=== PATIENT | female | born 1990 | race Caucasian/White ===

== ENCOUNTER → 2016-10-25 | Outpatient (CLI) | payer MEDICAID ==
[2016-10-25 20:55] LABS: Basophils # (A) 0.1 k/uL (0-0.2); Basophils % (A) 0 %; CH 31.7; CHCM 33.8; Eosinophils # (A) 0.1 k/uL (0-0.7); Eosinophils % (A) 1 %; HCT 41.3 % (34.0-46.0); HDW 2.14; HGB 13.6 gm/dL (11.4-16.0); Luc # (Auto) 0.12; Luc % (Auto) 1; Lymphocytes # (A) 1.9 k/uL (1.0-4.8); Lymphocytes % (A) 16 %; MCH 30.9 pg (25.0-35.0); MCHC 32.9 g/dL (31.0-37.0); MCV 94.1 fL (80.0-100.0); Mean Platelet Volume 8.4; Monocytes # (A) 0.4 k/uL (0-1.0); Monocytes % (A) 3 %; Neutrophils # (A) 9.5 k/uL (1.3-7.7); Neutrophils % (A) 79 %; RBC 4.39 m/uL (3.80-5.40); WBC 12.1 k/uL (3.8-10.6); WBC (Perox) 12.62
[2016-10-25 21:08] LABS: ALT 32 U/L (9-52); AST 24 U/L (14-36); Alkaline Phosphatase 58 U/L (38-126); Anion Gap 13 mmol/L; Blood Urea Nitrogen 11 mg/dL (7-17); Calcium 9.4 mg/dL (8.4-10.2); Carbon Dioxide 22 mmol/L (22-30); Chloride 109 mmol/L (98-107); Cholesterol 124 mg/dL (<200); Glucose 93 mg/dL (74-99); HDL Cholesterol 74 mg/dL (40-60); Non-African American GFR(MDRD) >60 (>60 ml/min/1.73 sqM); Potassium 4.1 mmol/L (3.5-5.1); Sodium 144 mmol/L (137-145); Total Bilirubin 1.9 mg/dL (0.2-1.3); Total Protein 7.1 g/dL (6.3-8.2); Triglycerides 37 mg/dL (<150)
== END | disposition home or self-care (01) ==
LOC: MMGSC 09:16
PROVIDERS: ATTEND Family Medicine
DX: Z00.00 Encounter for general adult medical examination without abnormal findings (principal)
CPT/HCPCS: 36415; 80053; 80061; 84439; 84443; 85025

== ENCOUNTER → 2016-10-28 | Outpatient (CLI) | payer MEDICAID ==
[2016-10-28 18:21] LABS: Basophils # (A) 0.1 k/uL (0-0.2); Basophils % (A) 1 %; CH 31.7; CHCM 33.5; Eosinophils # (A) 0.1 k/uL (0-0.7); Eosinophils % (A) 2 %; HCT 37.6 % (34.0-46.0); HDW 2.16; HGB 12.5 gm/dL (11.4-16.0); Luc % (Auto) 1; Lymphocytes # (A) 2.2 k/uL (1.0-4.8); Lymphocytes % (A) 27 %; MCH 31.7 pg (25.0-35.0); MCHC 33.3 g/dL (31.0-37.0); MCV 95.1 fL (80.0-100.0); Mean Platelet Volume 7.3; Monocytes # (A) 0.4 k/uL (0-1.0); Monocytes % (A) 5 %; Neutrophils # (A) 5.3 k/uL (1.3-7.7); Neutrophils % (A) 64 %; RBC 3.96 m/uL (3.80-5.40); RDW 11.9 % (11.5-15.5); WBC 8.3 k/uL (3.8-10.6); WBC (Perox) 8.89
== END | disposition home or self-care (01) ==
LOC: MMGSC 17:00
PROVIDERS: ATTEND Family Medicine
DX: R79.9 Abnormal finding of blood chemistry, unspecified (principal)
CPT/HCPCS: 36415; 85025

== ENCOUNTER → 2018-02-11 | Outpatient (CLI) | payer MEDICAID ==
[2018-02-11 08:22] LABS: Basophils # (A) 0.1 k/uL (0-0.2); Basophils % (A) 1 %; Eosinophils # (A) 0.2 k/uL (0-0.7); Eosinophils % (A) 2 %; HCT 42.7 % (34.0-46.0); HGB 14.4 gm/dL (11.4-16.0); Lymphocytes # (A) 2.1 k/uL (1.0-4.8); Lymphocytes % (A) 21 %; MCH 31.1 pg (25.0-35.0); MCHC 33.8 g/dL (31.0-37.0); MCV 91.9 fL (80.0-100.0); Mean Platelet Volume 6.5; Monocytes # (A) 0.4 k/uL (0-1.0); Monocytes % (A) 4 %; Neutrophils # (A) 7.2 k/uL (1.3-7.7); Neutrophils % (A) 73 %; Platelet Count 281 k/uL (150-450); RBC 4.65 m/uL (3.80-5.40); RDW 12.4 % (11.5-15.5); WBC 9.9 k/uL (3.8-10.6)
[2018-02-11 09:02] LABS: ALT 33 U/L (9-52); AST 24 U/L (14-36); Albumin 4.5 g/dL (3.5-5.0); Alkaline Phosphatase 56 U/L (38-126); Anion Gap 13 mmol/L; Blood Urea Nitrogen 16 mg/dL (7-17); Calcium 9.3 mg/dL (8.4-10.2); Carbon Dioxide 24 mmol/L (22-30); Chloride 105 mmol/L (98-107); Cholesterol 144 mg/dL (<200); Glucose 90 mg/dL (74-99); HDL Cholesterol 76 mg/dL (40-60); LDL Cholesterol,Calculated 59 mg/dL (0-99); Potassium 4.6 mmol/L (3.5-5.1); Sodium 142 mmol/L (137-145); Total Protein 6.6 g/dL (6.3-8.2); Triglycerides 46 mg/dL (<150)
== END | disposition home or self-care (01) ==
LOC: LABWHC1 07:57
PROVIDERS: ATTEND Registered Nurse
DX: R53.83 Other fatigue (principal); Z13.220 Encounter for screening for lipoid disorders; Z79.899 Other long term (current) drug therapy
CPT/HCPCS: 36415; 80053; 80061; 82306; 84443; 85025

== ENCOUNTER → 2018-04-29 | Outpatient (CLI) | payer MEDICAID ==
--- NOTE | 2018-04-29 08:37 | US ---
EXAMINATION TYPE: US abdomen complete DATE OF EXAM: 04/29/2018 COMPARISON: NONE CLINICAL HISTORY: R10.9 Abdominal Pain. Patient had pain to the left of the umbilicus EXAM MEASUREMENTS: Liver Length: 14.0 cm Gallbladder Wall: 0.2 cm CBD: 0.4 cm Spleen: 10.4 cm Right Kidney: 10.8 x 4.2 x 5.8 cm Left Kidney: 10.4 x 5.3 x 5.0 cm Pancreas: Obscured by bowel gas, visualized portions wnl Liver: wnl Gallbladder: wnl Evidence for sonographic Cook's sign: No CBD: wnl Spleen: Probable accessory spleen visualized measuring 1.2 x 1.6 x 2.0 cm Right Kidney: No hydronephrosis or masses seen, slightly limited due to bowel gas Left Kidney: No hydronephrosis or masses seen, slightly limited due to bowel gas Upper IVC: wnl Abd Aorta: wnl Scanning performed at the site of patient's pain left at the umbilicus shows no definite abnormality. The liver is homogenous. The intrahepatic portion of the IVC and proximal abdominal aorta are within normal limits. There is no evidence of cholelithiasis. Common bile duct is unremarkable. The visu alized portions of the pancreas are homogenous. The spleen is unremarkable. Kidneys are symmetric a nd free of hydronephrosis. No renal lesions are seen. Hypoechoic focus adjacent to the kidney and sp mo represent splenule. IMPRESSION: Exam is somewhat limited. No abnormality evident to account for patient's symptoms. CT sc an may be of benefit.
== END | disposition home or self-care (01) ==
LOC: RADUSWWP 07:22
PROVIDERS: ATTEND Family Medicine
DX: R10.9 Unspecified abdominal pain (principal)
CPT/HCPCS: 76700

== ENCOUNTER → 2019-08-18 | Outpatient (CLI) | payer MEDICAID ==
--- NOTE | 2019-08-18 16:18 | US ---
EXAMINATION TYPE: US transvaginal DATE OF EXAM: 08/18/2019 COMPARISON: NONE CLINICAL HISTORY: R10.2 PELVIC PAIN. Acute pelvic pain TECHNIQUE: . Transvaginal sonographic images of the pelvis were acquired. Date of LMP: 08/11/2019 EXAM MEASUREMENTS: Uterus: 7.3 x 3.6 x 4.1 cm Endometrial Stripe: 0.8 cm Right Ovary: 4.8 x 3.2 x 3.1 cm Left Ovary: 6.1 x 4.4 x 3.7 cm 1. Uterus: Anteverted wnl 2. Endometrium: wnl 3. Right Ovary: Multiple cystic areas, largest 3.7 x 2.6 x 2.4 cm 4. Left Ovary: Multiple cystic areas visualized, largest measuring 2.7 x 1.8 x 3.1 cm Spectral, color and waveform doppler imaging shows good arterial and venous flow within the ovaries ; there is no evidence for ovarian torsion. 5. Bilateral Adnexa: wnl 6. Posterior cul-de-sac: Tiny amount of free fluid visualized IMPRESSION: Probable functional ovarian follicular cyst. This can be confirmed with follow-up study in [address] weeks[address] amount of free fluid.
== END | disposition home or self-care (01) ==
LOC: RADUSWWP 15:28
PROVIDERS: ATTEND Obstetrics & Gynecology
DX: R10.2 Pelvic and perineal pain (principal)
CPT/HCPCS: 76830; 93975

== ENCOUNTER → 2019-08-27 | Outpatient (CLI) | payer MEDICAID ==
[2019-08-27 16:43] LABS: Basophils # (A) 0.1 k/uL (0-0.2); Basophils % (A) 1 %; Eosinophils # (A) 0.1 k/uL (0-0.7); Eosinophils % (A) 1 %; HCT 43.1 % (34.0-46.0); Lymphocytes # (A) 3.5 k/uL (1.0-4.8); Lymphocytes % (A) 25 %; MCH 31.6 pg (25.0-35.0); MCHC 34.9 g/dL (31.0-37.0); MCV 90.6 fL (80.0-100.0); Mean Platelet Volume 7.5; Monocytes # (A) 0.6 k/uL (0-1.0); Monocytes % (A) 4 %; Neutrophils # (A) 9.8 k/uL (1.3-7.7); Neutrophils % (A) 69 %; Platelet Count 343 k/uL (150-450); RBC 4.75 m/uL (3.80-5.40); RDW 11.8 % (11.5-15.5); WBC 14.1 k/uL (3.8-10.6)
[2019-08-27 17:46] LABS: Erythrocyte Sedimentation Rate 6 mm/hr (0-20)
[2019-08-27 23:28] LABS: C Reactive Protein <0.4 mg/dL (0.0-0.8)
[2019-08-27 23:29] LABS: ALT 21 U/L (8-44); AST 26 U/L (13-35); African American GFR (CKD) 100.1 (60.0-200.0); Albumin/Globulin Ratio 2.94 (1.60-3.17); Alkaline Phosphatase 65 U/L (41-126); BUN/Creat Ratio 16.67 Ratio (12.00-20.00); Calcium 9.7 mg/dL (8.7-10.3); Carbon Dioxide 23.7 mmol/L (21.6-31.8); Chloride 104 mmol/L (96-109); Globulin 1.7 g/dL (1.6-3.3); Glucose 86 mg/dL (70-110); Non-African American GFR(CKD) 86.4 (60.0-200.0); Sodium 138 mmol/L (135-145); Total Bilirubin 1.3 mg/dL (0.3-1.2); Total Protein 6.7 g/dL (6.2-8.2)
[2019-08-28 00:26] LABS: Gliadin AB IgA, Deaminated NEGATIVE (NEGATIVE); Gliadin AB IgA, Unit <0.2 U/mL; Gliadin AB IgG, Deaminated NEGATIVE (NEGATIVE)
== END | disposition home or self-care (01) ==
LOC: LABWHC1 15:33
PROVIDERS: ATTEND Family Medicine
DX: R10.30 Lower abdominal pain, unspecified (principal); N80.9 Endometriosis, unspecified
CPT/HCPCS: 36415; 80053; 83516; 84443; 85025; 85652; 86140

== ENCOUNTER → 2019-09-24 | Outpatient (CLI) | payer MEDICAID ==
[2019-09-24 20:28] LABS: Follicle Stimulating Hormone 5.1 mIU/mL
[2019-09-24 20:37] LABS: DHEA Sulfate 317.4 ug/dL (26.0-430.0); Progesterone 0.7 ng/mL
== END | disposition home or self-care (01) ==
LOC: LABWHC1 12:41
PROVIDERS: ATTEND Obstetrics & Gynecology
DX: N97.0 Female infertility associated with anovulation (principal); R10.2 Pelvic and perineal pain; N93.9 Abnormal uterine and vaginal bleeding, unspecified; N97.9 Female infertility, unspecified
CPT/HCPCS: 36415; 82627; 83001; 83002; 84144; 84403

== ENCOUNTER → 2019-11-03 | Outpatient (CLI) | payer MEDICAID | END | disposition home or self-care (01) | LOC: LABWHC1 15:46 | PROVIDERS: ATTEND Obstetrics & Gynecology | DX: N97.0 Female infertility associated with anovulation (principal) | CPT/HCPCS: 36415; 84144 ==

== ENCOUNTER → 2020-04-12 | Outpatient (CLI) | payer MEDICAID ==
--- NOTE | 2020-04-12 15:15 | FL ---
EXAMINATION TYPE: FL hysterosalpingography DATE OF EXAM: 04/12/2020 COMPARISON: None HISTORY: Infertility TECHNIQUE: The procedure was explained to the patient, the risks complications benefits. All question s were answered. Written and verbal informed consent was obtained. A timeout was performed. The patient was positioned on the fluoroscopy table. Speculum was inserted and the cervix localized. Vaginal vault was cleansed with Betadine. The catheter was placed and the balloon inflated without di fficulty. Under fluoroscopic observation contrast was placed through the uterus and into the fallopian tubes. The balloon was deflated and additional overhead radiographs were obtained. Discharge instructions were discussed with the patient. The patient was released in stable condition having tolerated procedure very well. FINDINGS: Uterus appears unremarkable. There was free flow with little resistance through the fallopi an tubes to the ends. Additional contrast collected at the ends of the fallopian tubes. Free spill co uld not be elicited within the pelvis. Prone and upright views over the pelvis likewise have persistent collection at the adnexal regions wi thout free spill into the pelvis. Fallopian tubes to the ends appear to be patent. IMPRESSION: 1. Contrast collection at the adnexal regions following free flow through the fallopian tubes. There may be some loculation surrounding the fimbriated ends of the fallopian tubes at the adnexa.
== END | disposition home or self-care (01) ==
LOC: RADUSWWP 13:31
PROVIDERS: ATTEND Obstetrics & Gynecology
DX: N97.9 Female infertility, unspecified (principal)
CPT/HCPCS: 58340; 74740; Q9967

== ENCOUNTER → 2020-09-06 | Outpatient (CLI) | payer MEDICAID ==
[2020-09-07 07:34] LABS: Hepatitis B Surface Antigen Non-Reactive (Non-Reactive); Hepatitis C IgG Antibody Non-Reactive (Non-Reactive)
[2020-09-07 10:00] LABS: Prolactin 8.2 ng/mL (2.8-29.2)
[2020-09-07 11:10] LABS: HIV 2 AB Non-Reactive (Non-Reactive); HIV AB P24 Non-Reactive (Non-Reactive); HIV P24 AG Non-Reactive (Non-Reactive)
== END | disposition home or self-care (01) ==
LOC: LABWHC1 15:36
PROVIDERS: ATTEND Obstetrics & Gynecology Reproductive Endocrinology
DX: Z01.812 Encounter for preprocedural laboratory examination (principal)
CPT/HCPCS: 36415; 82306; 82397; 83036; 84146; 84443; 86704; 86762; 86780; 86787; 86803; 86850; 86900; 86901; 87340; 87390

== ENCOUNTER → 2021-07-30 | Outpatient (CLI) | payer MEDICAID ==
[2021-07-30 22:31] LABS: HCT 38.7 % (37.2-46.3); HGB 13.2 g/dL (12.0-15.0); MCH 31.3 pg (27.0-32.0); MCHC 34.1 g/dL (32.0-37.0); MCV 91.7 fL (80.0-97.0); Mean Platelet Volume 9.5 fL (9.5-12.2); Platelet Count 287 X 10*3/uL (140-440); RBC 4.22 X 10*6/uL (4.10-5.20); RDW 12.1 % (11.5-14.5); WBC 15.76 X 10*3/uL (4.50-10.00)
[2021-07-31 00:21] LABS: African American GFR (CKD) 133.8 (60.0-200.0); Non-African American GFR(CKD) 115.4 (60.0-200.0)
[2021-07-31 00:41] LABS: Hepatitis B Surface Antigen Nonreactive (Nonreactive)
[2021-07-31 05:48] LABS: Toxoplasma Antibody (IgG) <3.0 IU/mL (<7.2); Toxoplasma Antibody (IgM) <3.0 AU/mL (<8.0)
== END | disposition home or self-care (01) ==
LOC: LABWHC1 16:45
PROVIDERS: ATTEND Obstetrics & Gynecology
DX: Z34.81 Encounter for supervision of other normal pregnancy, first trimester (principal)
CPT/HCPCS: 36415; 82565; 82947; 85027; 86765; 86777; 86778; 86780; 87340; 87536

== ENCOUNTER → 2021-08-07 | Outpatient (CLI) | payer MEDICAID ==
[2021-08-08 14:56] LABS: Alpha Fetoprotein 38.8 ng/mL; Alpha Fetoprotein (M.O.M) 1.14; Gestational Age (days) 2; Human Chorionic Gonadotropin 31.8 IU/mL; Inhibin A (M.O.M.) 0.99; Interpretation SeeBelow; Maternal Age at EDD (Yrs) 31; Smoker No; Unconjugated Estriol (M.O.M.) 0.89
== END | disposition home or self-care (01) ==
LOC: LABWHC1 15:29
PROVIDERS: ATTEND Obstetrics & Gynecology
DX: Z34.02 Encounter for supervision of normal first pregnancy, second trimester (principal)
CPT/HCPCS: 36415; 82105; 82677; 84702; 86336

== ENCOUNTER → 2021-08-13 | Outpatient (CLI) | payer MEDICAID ==
--- NOTE | 2021-08-13 15:52 | US ---
EXAMINATION TYPE: US OB anatomy transabd DATE OF EXAM: 08/13/2021 COMPARISON: NONE HISTORY: O36.62X0 Large for dates anatomy exam TECHNIQUE: OBTA EXAM MEASUREMENTS: GESTATIONAL AGE / DATING Physician Established: (18 weeks/1 days) EDC: 01/13/2022 Dates by LMP: Unknown Dates by First Scan: PLATEN BUILDER UP here Dates by Current Scan for: (18 weeks/3 days) EDC: 01/11/2022 SURVEY IUP: Single PLACENTA: Posterior PREVIA: No previa KEVIN: 11.9 cm Normal CERVICAL LENGTH (transabdominal: norm > 3.0cm): 3.7 cm BIOMETRY PRESENTATION: Breech LIE: Longitudinal BPD: 4.0 cm 18 weeks / 1 days HC: 15.2 cm 18 weeks / 2 days AC: 13.5 cm 19 weeks / 0 days FL: 2.8 cm 18 weeks / 4 days ESTIMATED WEIGHT IN GRAMS: 252 grams ESTIMATED WEIGHT IN LBS/OZ: 0 lbs. 9 oz. WEIGHT PERCENTAGE BASED ON ESTABLISHED DATE: 78 % HC/AC: 1.1 Normal FL/AC: 20.7 Normal HEART RATE: 134 bpm RHYTHM: Normal ANATOMY SEEN (within normal limits): * Lateral Vent (< 1 cm) 0.8 cm * Cisterna Magna (< 1.1 cm) 0.4 cm * Nuchal Fold (< 0.6 cm) 0.3 cm * Cerebellum (varies with age) 1.8 cm Choroid Plexus (bilateral) Midline Falx Cavus Septi Pellucidi Four Chamber Heart - best imaging of outflow tracts toward end of exam Outflow tracts: LVOT/RVOT Stomach Situs Diaphragm Kidneys (bilateral) Bladder Cord Insert Three Vessel Cord Longitudinal Spine Transverse Spine Arms (bilateral) ANATOMY NOT SEEN: Legs (bilateral) - due to positioning, breech Nose / Lips MATERNAL WALL MEASUREMENT: 3.9 cm from skin to anterior uterine wall (if exam limited due to body scott bitus). Patient is coming back for imaging of lower limbs, challenging exam due to positioning and habi tus IMPRESSION: Single viable intrauterine . See above for patient callback and exam limitation.
== END | disposition home or self-care (01) ==
LOC: RADUSWWP 14:42
PROVIDERS: ATTEND Obstetrics & Gynecology
DX: O36.62X0 Maternal care for excessive fetal growth, second trimester, not applicable or unspecified (principal); Z3A.18 18 weeks gestation of pregnancy
CPT/HCPCS: 76811

== ENCOUNTER → 2021-09-03 | Outpatient (CLI) | payer MEDICAID ==
--- NOTE | 2021-09-03 16:02 | US ---
EXAMINATION TYPE: US OB Call Back DATE OF EXAM: 09/03/2021 COMPARISON: NONE CLINICAL HISTORY: OB CALL BACK; O36.62X0 Large for dates. Callback exam for bilateral legs and nose/l ips GESTATIONAL AGE / DATING Dates by Initial Survey Scan: (21 weeks/1 days) EDC: 01/13/2022 HEART RATE: 144 bpm RHYTHM: Normal Nose / Lips: Visualized Legs (bilateral): Visualized Bilateral legs seen, limited nose/lips, normal heart rate seen IMPRESSION: 1. Limited OB ultrasound for small parts. 2. Nose and lips remaining limited on this examination. 3. Single intrauterine gestation estimated at 21 weeks 1 day gestation based on current ultrasound me asurements. Cardiac activity measures 144 bpm.
== END | disposition home or self-care (01) ==
LOC: RADUSWWP 14:52
PROVIDERS: ATTEND Obstetrics & Gynecology
DX: Z53.9 Procedure and treatment not carried out, unspecified reason (principal)

== ENCOUNTER → 2021-11-19 | Outpatient (CLI) | payer MEDICAID ==
--- NOTE | 2021-11-19 17:07 | US ---
EXAMINATION TYPE: US OB >= 14 wk fetus DATE OF EXAM: 11/19/2021 COMPARISON: US CLINICAL HISTORY: [id number] LARGE FOR DATESLarge for dates. . TECHNIQUE: Transabdominal (TA) GESTATIONAL AGE / DATING Physician Established: (32 weeks/1 day) EDC: 01/13/2022 Dates by LMP: Unknown. Dates by First Scan: (33 weeks/0 days) EDC: 01/11/2022 Dates by Current Scan: (32 weeks/5 days) EDC: 01/09/2022 SURVEY IUP: Single PLACENTA: Posterior PREVIA: No Previa KEVIN: 8.17 cm. Lower measurement. Second measurement was 8.96 cm. Measures low for hospital standar ds (less than 10 cm). CERVICAL LENGTH (transabdominal: norm > 3.0cm): 3.5 cm BIOMETRY PRESENTATION: Vertex BPD: 8.26 cm 33 weeks / 2 days HC: 30.28 cm 33 weeks / 4 days AC: 28.87 cm 32 weeks / 6 days FL: 6.35 cm 32 weeks / 6 days ESTIMATED WEIGHT IN GRAMS: 2090 grams ESTIMATED WEIGHT IN LBS/OZ: 4 lbs. 10 oz. WEIGHT PERCENTAGE BASED ON ESTABLISHED DATES: 66.5% HC/AC: 1.05 Normal FL/AC: 21.99 Normal HEART RATE: 130 bpm RHYTHM: Normal Nose/lips rescanned and visualized at this time. *Spoke with labor utilization superintendent Dr. Cisco lazaro regarding KEVIN, pt is okay to go home. IMPRESSION: The ultrasound gestational age is 32 weeks and 5 days. There is satisfactory growth compared to 08/13/2021 exam.
== END | disposition home or self-care (01) ==
LOC: RADUSWWP 15:58
PROVIDERS: ATTEND Obstetrics & Gynecology
DX: O36.63X0 Maternal care for excessive fetal growth, third trimester, not applicable or unspecified (principal); Z3A.00 Weeks of gestation of pregnancy not specified
CPT/HCPCS: 76805

== ENCOUNTER 2021-11-29 15:31 | Outpatient (CLI) | payer MEDICAID ==
[2021-11-29 16:33] VITALS: BP 124/76; PULSE 93
--- NOTE | 2021-11-30 16:15 | P.MSEPDOC ---
Presenting Problems - Arrival Data Date of Arrival on Unit: 11/29/21 Time of Arrival on Unit: 15:35 Mode of Transport: Ambulatory - Complaint OB-Reason for Admission/Chief Complaint: NST Medical History - Information : 1 Para: 0 Term: 0 : 0 Abortions: Spontaneous or Elective: 0 Number of Living Children: 0 - Gestational Age Gestational Age by TALI (wks/days): 33 Weeks and 4 Days - History Comment: IVF Review of Systems - Review of Systems Constitutional: No problems Breast: No problems ENT: No problems Cardiovascular: No problems Respiratory: No problems Gastrointestinal: No problems Genitourinary: No problems Musculoskeletal: No problems Neurological: No problems Skin: No problems Vital Signs - Pulse Right Sitting Pulse Rate: 93 Pulse Assessment Method: Automatic Cuff - Blood Pressure Right Arm Blood Pressure: 124/76 Blood Pressure Mean: 92 Blood Pressure Source: Automatic Cuff Medical Screen Scoring - Assessment - Baby A Baseline FHR: 145 Heart Rate - NICHD Category: Category I (Normal) NST: Reactive Maternal Triage Index - Scheduled/Requesting Priority 5 Scheduled/Requesting Priority 5: Yes Criteria Met for Priority 5: weekly NST Disposition - Disposition OB Disposition: Discharge to home Discharge Date: 11/29/21 Discharge Time: 16:30 I agree with the RN Medical Screening Exam: Yes Case reviewed; plan agreed upon as documented in EMR&OBIX.: Yes Diagnosis: RELATED CONDITIONS, UNSPECIFIED, THIRD TRIMESTER
== END 2021-11-29 16:30 | disposition home or self-care (01) ==
LOC: FBPOP 15:31
PROVIDERS: ATTEND Obstetrics & Gynecology
DX: O26.93 Pregnancy related conditions, unspecified, third trimester (principal); Z3A.33 33 weeks gestation of pregnancy
CPT/HCPCS: 59025

== ENCOUNTER 2021-12-06 13:00 | Outpatient (CLI) | payer MEDICAID ==
--- NOTE | 2021-12-08 07:20 | P.MSEPDOC ---
Presenting Problems - Arrival Data Date of Arrival on Unit: 12/06/21 Time of Arrival on Unit: 13:00 Mode of Transport: Ambulatory - Complaint OB-Reason for Admission/Chief Complaint: NST Comment: pt has written order from for weekly NST due to IVF Medical History - Information : 1 Para: 0 Term: 0 : 0 Abortions: Spontaneous or Elective: 0 Number of Living Children: 0 - Gestational Age Gestational Age by TALI (wks/days): 34 Weeks and 4 Days Review of Systems - Review of Systems Constitutional: No problems Breast: No problems ENT: No problems Cardiovascular: No problems Respiratory: No problems Gastrointestinal: No problems Genitourinary: No problems Musculoskeletal: No problems Neurological: No problems Skin: No problems Physician Notification - Notification Comment Comment: pt had reactive NST, orders written to discharge pt if NST reactive Maternal Triage Index - Maternal Triage Index Presenting for scheduled procedure w/no complaint: Yes - Scheduled/Requesting Priority 5 Scheduled/Requesting Priority 5: Yes Criteria Met for Priority 5: pt has written order for NST from Dr. Miramontes Disposition - Disposition OB Disposition: Triage, Discharge to home, Written follow up instructions reviewed Discharge Date: 12/06/21 Discharge Time: 13:40 I agree with the RN Medical Screening Exam: Yes Case reviewed; plan agreed upon as documented in EMR&OBIX.: Yes Diagnosis: RELATED CONDITIONS, UNSPECIFIED, THIRD TRIMESTER
== END 2021-12-06 13:40 | disposition home or self-care (01) ==
LOC: FBPOP 13:00
PROVIDERS: ATTEND Obstetrics & Gynecology
DX: O26.93 Pregnancy related conditions, unspecified, third trimester (principal); Z3A.34 34 weeks gestation of pregnancy
CPT/HCPCS: 59025

== ENCOUNTER 2021-12-14 12:32 | Outpatient (CLI) | payer MEDICAID | END 2021-12-14 13:18 | disposition home or self-care (01) | LOC: FBPOP 12:32 | PROVIDERS: ATTEND Obstetrics & Gynecology | DX: O09.813 Supervision of pregnancy resulting from assisted reproductive technology, third trimester (principal); Z3A.00 Weeks of gestation of pregnancy not specified | CPT/HCPCS: 59025; 99213 ==

== ENCOUNTER 2021-12-21 13:38 | Outpatient (CLI) | payer MEDICAID ==
[2021-12-21 14:14] VITALS: BP 131/77; PULSE 103; RESP 16; TEMP 97.9
--- NOTE | 2021-12-22 08:03 | P.MSEPDOC ---
Presenting Problems - Arrival Data Date of Arrival on Unit: 12/21/21 Time of Arrival on Unit: 13:38 Mode of Transport: Ambulatory - Complaint OB-Reason for Admission/Chief Complaint: NST Comment: weekly nst, denies complications, reports + fm Medical History - Information : 1 Para: 0 Term: 0 : 0 Abortions: Spontaneous or Elective: 0 Number of Living Children: 0 - Gestational Age Gestational Age by TALI (wks/days): 36 Weeks and 5 Days - History Comment: hx of ivf Review of Systems - Review of Systems Constitutional: No problems Breast: No problems ENT: No problems Cardiovascular: No problems Respiratory: No problems Gastrointestinal: No problems Genitourinary: No problems Musculoskeletal: No problems Neurological: No problems Skin: No problems Vital Signs - Temperature Temperature: 97.9 F Temperature Source: Temporal Artery Scan - Pulse Right Brachial Pulse Rate: 103 Pulse Assessment Method: Automatic Cuff - Respirations Respiratory Rate: 16 Oxygen Delivery Method: Room Air O2 Sat by Pulse Oximetry: 98 - Blood Pressure Right Arm Blood Pressure: 131/77 Blood Pressure Mean: 95 Blood Pressure Source: Automatic Cuff Medical Screen Scoring - Assessment - Baby A Baseline FHR: 135 Heart Rate - NICHD Category: Category I (Normal) NST: Reactive Physician Notification - Physician Notified Physician Notified Date: 12/21/21 Physician Notified Time: 14:10 Physician: Jonathan Miramontes New Order Received: Yes (dc home if reactive nst) Maternal Triage Index - Scheduled/Requesting Priority 5 Scheduled/Requesting Priority 5: Yes Criteria Met for Priority 5: nst reactive Disposition - Disposition OB Disposition: Discharge to home, Written follow up instructions reviewed Discharge Date: 12/21/21 Discharge Time: 14:13 I agree with the RN Medical Screening Exam: Yes Case reviewed; plan agreed upon as documented in EMR&OBIX.: Yes Diagnosis: RELATED CONDITIONS, UNSPECIFIED, THIRD TRIMESTER
== END 2021-12-21 14:14 | disposition home or self-care (01) ==
LOC: FBPOP 13:38
PROVIDERS: ATTEND Obstetrics & Gynecology
DX: O26.93 Pregnancy related conditions, unspecified, third trimester (principal); Z3A.36 36 weeks gestation of pregnancy
CPT/HCPCS: 59025

== ENCOUNTER 2021-12-28 08:44 | Outpatient (CLI) | payer MEDICAID ==
[2021-12-28 09:24] VITALS: BP 140/76; PULSE 93; RESP 18; TEMP 98.4
--- NOTE | 2021-12-28 11:31 | P.MSEPDOC ---
Presenting Problems - Arrival Data Date of Arrival on Unit: 12/28/21 Time of Arrival on Unit: 08:44 Mode of Transport: Ambulatory - Complaint OB-Reason for Admission/Chief Complaint: Rule Out SROM, NST Comment: gush of fluid when walking in to work today, NST weekly. Medical History - Information : 1 Para: 0 Term: 0 : 0 Abortions: Spontaneous or Elective: 0 Number of Living Children: 0 - Gestational Age Gestational Age by TALI (wks/days): 37 Weeks and 5 Days - History Comment: IVF Review of Systems - Review of Systems Constitutional: No problems Breast: No problems ENT: No problems Cardiovascular: No problems Respiratory: No problems Gastrointestinal: No problems Genitourinary: No problems Musculoskeletal: No problems Neurological: No problems Skin: No problems Vital Signs - Temperature Temperature: 98.4 F Temperature Source: Temporal Artery Scan - Pulse Right Sitting Brachial Pulse Rate: 93 Pulse Assessment Method: Automatic Cuff - Respirations Respiratory Rate: 18 Oxygen Delivery Method: Room Air - Blood Pressure Right Arm Sitting Blood Pressure: 140/76 Blood Pressure Mean: 97 Blood Pressure Source: Automatic Cuff Medical Screen Scoring - Assessment - Baby A Baseline FHR: 130 Heart Rate - NICHD Category: Category I (Normal) NST: Reactive Physician Notification - Physician Notified Physician Notified Date: 12/28/21 Physician Notified Time: 09:00 Physician: Jonathan Miramontes New Order Received: Yes - Notification Comment Comment: Dc home. Amnisure negative and NST reacive. Maternal Triage Index - Maternal Triage Index Presenting for scheduled procedure w/no complaint: No - Stat/Priority 1 Stat Priority 1: No - Urgent/Priority 2 Urgent Priority 2: No - Prompt/Priority 3 Prompt Priority 3: No - Non-Urgent/Priority 4 Non-Urgent Priority 4: Yes Criteria Met for Priority 4: ?SROM, gush fluid. Disposition - Disposition OB Disposition: Discharge to home Discharge Date: 12/28/21 Discharge Time: 09:20 I agree with the RN Medical Screening Exam: Yes Case reviewed; plan agreed upon as documented in EMR&OBIX.: Yes Diagnosis: RELATED CONDITIONS, UNSPECIFIED, THIRD TRIMESTER
== END 2021-12-28 09:20 | disposition home or self-care (01) ==
LOC: FBPOP 08:44
PROVIDERS: ATTEND Obstetrics & Gynecology
DX: O26.93 Pregnancy related conditions, unspecified, third trimester (principal); Z3A.37 37 weeks gestation of pregnancy
CPT/HCPCS: 59025; 84112; 99213

== ENCOUNTER 2022-01-02 15:42 | Outpatient (CLI) | payer MEDICAID ==
[2022-01-02 16:18] VITALS: BP 134/83; PULSE 96; RESP 16; TEMP 97.6
--- NOTE | 2022-01-03 16:42 | P.MSEPDOC ---
Presenting Problems - Arrival Data Date of Arrival on Unit: 01/02/22 Time of Arrival on Unit: 15:42 Mode of Transport: Ambulatory - Complaint OB-Reason for Admission/Chief Complaint: NST Comment: Patient presents to triage for schedule NST Medical History - Information : 1 Para: 0 Term: 0 : 0 Abortions: Spontaneous or Elective: 0 Number of Living Children: 0 - Gestational Age Gestational Age by TALI (wks/days): 38 Weeks and 3 Days - History Comment: IVF Review of Systems - Review of Systems Constitutional: No problems Breast: No problems ENT: No problems Cardiovascular: No problems Respiratory: No problems Gastrointestinal: No problems Genitourinary: No problems Musculoskeletal: No problems Neurological: No problems Skin: No problems Vital Signs - Temperature Temperature: 97.6 F Temperature Source: Temporal Artery Scan - Pulse Pulse Oximetery Pulse Rate: 96 Pulse Assessment Method: Automatic Cuff - Respirations Respiratory Rate: 16 Oxygen Delivery Method: Room Air - Blood Pressure Sitting Blood Pressure: 134/83 Blood Pressure Mean: 100 Blood Pressure Source: Automatic Cuff Medical Screen Scoring - Uterine Contractions Frequency From (mins): 1 Frequency To (mins): 2 Duration From (seconds): 60 Duration To (seconds): 70 Intensity: Mild Resting: Soft to palpation - Assessment - Baby A Baseline FHR: 140 Heart Rate - NICHD Category: Category I (Normal) NST: Reactive Physician Notification - Physician Notified Physician Notified Date: 01/02/22 Physician Notified Time: 16:14 Physician: Jonathan Miramontes New Order Received: Yes - Notification Comment Comment: Orders given to discharge home with instructions Maternal Triage Index - Maternal Triage Index Presenting for scheduled procedure w/no complaint: Yes - Scheduled/Requesting Priority 5 Scheduled/Requesting Priority 5: Yes Criteria Met for Priority 5: Patient presents with orders for NST Disposition - Disposition OB Disposition: Discharge to home, Written follow up instructions reviewed Discharge Date: 01/02/22 Discharge Time: 16:14 I agree with the RN Medical Screening Exam: Yes Case reviewed; plan agreed upon as documented in EMR&OBIX.: Yes Diagnosis: RELATED CONDITIONS, UNSPECIFIED, THIRD TRIMESTER
== END 2022-01-02 16:14 | disposition home or self-care (01) ==
LOC: FBPOP 15:42
PROVIDERS: ATTEND Obstetrics & Gynecology
DX: O26.93 Pregnancy related conditions, unspecified, third trimester (principal); Z3A.38 38 weeks gestation of pregnancy
CPT/HCPCS: 59025; 99213

== ENCOUNTER 2022-01-02 23:48 | Inpatient (IN) | payer MEDICAID ==
[2022-01-03] MEDS ORDERED: CARBOPROST TROMETHAMINE 250 MCG/ML 1 ML AMP IM PRN (00:43)
[2022-01-03] MEDS ORDERED: OXYTOCIN 10 UNIT/ML 1 ML VIAL IM PRN (00:43)
[2022-01-03] MEDS ORDERED: TERBUTALINE 1 MG/ML VIAL SQ PRN (00:43)
[2022-01-03] MEDS ORDERED: LIDOCAINE 1% (PF) 10 MG/ML (30 ML SDV) SQ PRN (00:43)
[2022-01-03] MEDS ORDERED: METHYLERGONOVINE 0.2 MG/ML 1 ML AMP IM PRN (00:43)
[2022-01-03] MEDS ORDERED: OXYTOCIN 30 UNITS/500 ML NS 30 UNIT in SALINE 1 500ML.BAG IV SCH ×2 (00:45→15:27)
[2022-01-03 01:10] LABS: Basophils # (A) 0.1 k/uL (0-0.2); Basophils % (A) 1 %; Eosinophils # (A) 0.1 k/uL (0-0.7); Eosinophils % (A) 1 %; HCT 44.5 % (34.0-46.0); Lymphocytes # (A) 2.7 k/uL (1.0-4.8); Lymphocytes % (A) 16 %; MCH 30.8 pg (25.0-35.0); MCHC 33.7 g/dL (31.0-37.0); MCV 91.4 fL (80.0-100.0); Mean Platelet Volume 7.4; Monocytes # (A) 0.6 k/uL (0-1.0); Monocytes % (A) 4 %; Neutrophils # (A) 12.9 k/uL (1.3-7.7); Neutrophils % (A) 78 %; Platelet Count 244 k/uL (150-450); RBC 4.87 m/uL (3.80-5.40); WBC 16.5 k/uL (3.8-10.6)
[2022-01-03] MEDS: LACTATED RINGERS 1,000 ML IV SCH ×2 (01:15→09:21)
[2022-01-03] MEDS ORDERED: ROPIVACAINE 5MG/ML 20ML VIAL ONE (06:27)
[2022-01-03] MEDS ORDERED: SODIUM CHLORIDE 0.9% 100 ML BAG ONE (06:27)
[2022-01-03] MEDS ORDERED: fentaNYL (PF) 50 MCG/ML 5 ML AMP ONE (06:27)
--- NOTE | 2022-01-03 06:47 | P.HPOB ---
History of Present Illness H&P Date: 01/03/22 Chief Complaint: Leaking of fluid This patient is a pleasant 31-year-old 1 para 0 female estimated date of confinement 01/13/2022 estimated gestational age 38-3/7 weeks gestation who is admitted to labor and delivery with complaints of gush of fluid at 10:30 last evening. Patient's care has been uncomplicated. is the product of IVF transfer. Patient has been watched with nonstress tests and growth ultrasounds. Patient is admitted by Dr. Peck last evening is on Pitocin induction/augmentation. Review of Systems Genitourinary: Reports Menstruation: Reports amenorrhea Past Medical History Past Medical History: No Reported History History of Any Multi-Drug Resistant Organisms: None Reported Past Surgical History: Cholecystectomy, Tubal Ligation Past Anesthesia/Blood Transfusion Reactions: No Reported Reaction Past Psychological History: No Psychological Hx Reported Smoking Status: Former smoker Past Alcohol Use History: None Reported Past Drug Use History: None Reported - Past Family History Mother Family Medical History: Hypertension Father Family Medical History: Cancer, Musculoskeletal Disorder Additional Family Medical History / Comment(s): Multiple sclerosis Medications and Allergies Home Medications Medication Instructions Recorded Confirmed Type Pnv No.95/Ferrous Fum/Folic AC 1 tab PO DAILY 11/29/21 01/02/22 History [ Multivitamin Tablet] Allergies Allergy/AdvReac Type Severity Reaction Status Date / Time No Known Allergies Allergy Verified 01/03/22 00:05 Exam Vital Signs Temp Pulse Resp BP Pulse Ox 01/03/22 00:37 97.6 F 96 16 138/86 97 Intake and Output 01/02/22 01/02/22 01/03/22 14:59 22:59 06:59 Other: Weight 99.79 kg - OBG Physical Exam Vulva: both: normal Vagina: normal moisture, no discharge Cervix: no lesion (Cervix is 390 and -2.), no discharge Uterus: enlarged Results blood work shows she is O positive, rubella immune, hepatitis is nonreactive, RPR is nonreactive, HIV was negative, quad screen was negative, ultrasounds have shown normal anatomy and growth. Glucola was normal, group B strep was negative. Result Diagrams: 01/03/22 00:53 Abnormal Lab Results - Last 24 Hours (Table) 01/03/22 Range/Units 00:53 WBC 16.5 H (3.8-10.6) k/uL Neutrophils # 12.9 H (1.3-7.7) k/uL Assessment and Plan Assessment: This is a pleasant 31-year-old 1 para 0 female 38-3/7 weeks gestation who is admitted with spontaneous rupture membranes. Plan is augmentation of labor and anticipate vaginal delivery. (1) 38 weeks gestation of Current Visit: Yes Status: Acute Code(s): Z3A.38 - 38 WEEKS GESTATION OF SNOMED Code(s): 92602847 (2) Spontaneous rupture of amniotic membranes Current Visit: Yes Status: Acute Code(s): [id number] - SNOMED Code(s): 283907168
[2022-01-03] MEDS ORDERED: SIMETHICONE 80 MG CHEWABLE PO PRN (15:27)
[2022-01-03] MEDS ORDERED: diphenhydrAMINE 50 MG/ML 1 ML VIAL IVP PRN (15:27)
[2022-01-03] MEDS ORDERED: ACETAMINOPHEN TAB 325 MG TAB PO PRN (15:27)
[2022-01-03] MEDS ORDERED: ZOLPIDEM 5 MG TAB PO PRN (15:27)
[2022-01-03] MEDS ORDERED: bisacodyL 10 MG SUPP RECTAL PRN (15:27)
[2022-01-03] MEDS ORDERED: BENZOCAINE/MENTHOL SPRAY 1 GM/SPRAY AEROSOL TOPICAL PRN (15:27)
[2022-01-03] MEDS ORDERED: HYDROCORTISONE 2.5% RECTAL CREAM 30 GM TUBE RECTAL PRN (15:27)
[2022-01-03] MEDS ORDERED: diphenhydrAMINE 25 MG CAP PO PRN (15:27)
[2022-01-03] MEDS ORDERED: LANOLIN CREAM 5 GM TUBE TOPICAL PRN (15:27)
[2022-01-03] MEDS: IBUPROFEN 600 MG TAB PO PRN (15:36)
[2022-01-03] MEDS: SENNOSIDES-DOCUSATE SODIUM 1 EACH TAB PO SCH ×2 (16:30→19:56)
--- NOTE | 2022-01-03 16:39 | P.PROBDLV ---
Vaginal Delivery Note - . Vaginal Delivery Note: Normal vaginal delivery viable female Apgars 9 and 9 delivery time is 1432 hrs. Please see dictated H&P for intimate details of this patient's admission. Brief summary this is a pleasant 31-year-old 1 para 0 female 38-3/7 weeks gestation admitted to labor and delivery with spontaneous rupture membranes in early labor. Patient has Pitocin augmentation of labor per protocol. She gets an epidural for pain control and does progress quite quickly. Patient gets to complete pushes for approximately 30-40 minutes and pushes the head to the perineum. Posterior perineum is supported we have controlled delivery of the infant's head over the intact perineum. Infant's head is straight occiput anterior presentation. Mouth and nares are bulb suctioned. There is no evidence of a nuchal cord. With gentle downward traction we then have deliver the anterior and posterior shoulder and rest this infant's body. This is a vigorous viable female Apgars are 9 and 9 delivery time is 1432 hrs. After delivery of the infant the umbilical cord is allowed quit pulsating is then doubly clamped and cut. The is laid on the mother's abdomen. The placenta is then spontaneously delivered intact. Patient does have some slow but steady bleeding at this time and therefore I do uterine massage, IV Pitocin and one dose of Methergine. The bleeding subsides after this. There are no lacerations except for a small right periurethral superficial tear which does not require sutures. All counts are correct 3. There are no complications. Infant and mother are stable delivery room.
--- NOTE | 2022-01-03 16:41 | P.MSEPDOC ---
Presenting Problems - Arrival Data Date of Arrival on Unit: 01/03/22 Time of Arrival on Unit: 00:30 Mode of Transport: Ambulatory - Complaint OB-Reason for Admission/Chief Complaint: Possible Onset of Labor, Rule Out PROM Medical History - Information : 1 Para: 0 Term: 0 : 0 Abortions: Spontaneous or Elective: 0 Number of Living Children: 0 - Gestational Age Gestational Age by TALI (wks/days): 38 Weeks and 4 Days Review of Systems - Review of Systems Constitutional: No problems Breast: No problems ENT: No problems Cardiovascular: No problems Respiratory: No problems Gastrointestinal: No problems Genitourinary: No problems Musculoskeletal: No problems Neurological: No problems Skin: No problems Vital Signs - Temperature Temperature: 98.8 F Temperature Source: Temporal Artery Scan - Pulse Right Supine Brachial Pulse Rate: 96 Pulse Assessment Method: Automatic Cuff - Respirations Respiratory Rate: 16 Oxygen Delivery Method: CPAP - Blood Pressure Right Arm Supine Blood Pressure: 140/72 Blood Pressure Mean: 94 Blood Pressure Source: Automatic Cuff Medical Screen Scoring - Cervical Exam Dilation (cm): 1 Effacement (%): 50 Station: 0 Membranes: Ruptured - Uterine Contractions Frequency From (mins): 2 Frequency To (mins): 3 Duration From (seconds): 30 Duration To (seconds): 50 Intensity: Mild Resting: Soft to palpation - Assessment - Baby A Baseline FHR: 125 Heart Rate - NICHD Category: Category I (Normal) NST: Reactive Physician Notification - Physician Notified Physician Notified Date: 01/02/22 Physician Notified Time: 23:55 Physician: Rosalee Peck New Order Received: Yes Maternal Triage Index - Non-Urgent/Priority 4 Non-Urgent Priority 4: Yes Criteria Met for Priority 4: Patient stated that she came in thinking her water broke. Disposition - Disposition OB Disposition: Admit I agree with the RN Medical Screening Exam: Yes Case reviewed; plan agreed upon as documented in EMR&OBIX.: Yes Diagnosis: ENCOUNTER FOR FULL-TERM UNCOMPLICATED DELIVERY
[2022-01-04 06:26] LABS: Basophils # (A) 0.1 k/uL (0-0.2); Basophils % (A) 0 %; Eosinophils # (A) 0.1 k/uL (0-0.7); Eosinophils % (A) 0 %; HCT 39.3 % (34.0-46.0); HGB 12.7 gm/dL (11.4-16.0); Lymphocytes # (A) 2.3 k/uL (1.0-4.8); Lymphocytes % (A) 12 %; MCHC 32.3 g/dL (31.0-37.0); MCV 92.8 fL (80.0-100.0); Mean Platelet Volume 7.6; Monocytes # (A) 0.7 k/uL (0-1.0); Monocytes % (A) 4 %; Neutrophils # (A) 15.6 k/uL (1.3-7.7); Neutrophils % (A) 83 %; Platelet Count 206 k/uL (150-450); RBC 4.24 m/uL (3.80-5.40); RDW 13.3 % (11.5-15.5); WBC 18.8 k/uL (3.8-10.6)
[2022-01-04] MEDS: IBUPROFEN 600 MG TAB PO PRN ×2 (07:00→16:08)
--- NOTE | 2022-01-04 08:16 | P.DS ---
Providers Date of admission: 01/03/22 00:36 Expected date of discharge: 01/04/22 Attending physician: Jonathan Miramontes Primary care physician: Stated None - Discharge Diagnosis(es) (1) Normal vaginal delivery Current Visit: Yes Status: Acute Hospital Course: Patient presented with spontaneous rupture of membranes. She had Pitocin augmentation and then underwent a normal vaginal delivery. course on, K. She denies nausea, vomiting, chest pain, shortness of breath or any calf pain. Her fundus is firm and her lochia is decreasing. She'll be discharged home day #1 in stable condition to follow-up with Dr. Miramontes in 6 weeks. Plan - Discharge Summary New Discharge Prescriptions: New Ibuprofen [Motrin] 600 mg PO Q6HR PRN #30 tab PRN Reason: Mild Pain (Scale 1 To 3) No Action Pnv No.95/Ferrous Fum/Folic AC [ Multivitamin Tablet] 1 tab PO DAILY Discharge Medication List Pnv No.95/Ferrous Fum/Folic AC [ Multivitamin Tablet] 1 tab PO DAILY 11/29/21 [History] Ibuprofen [Motrin] 600 mg PO Q6HR PRN #30 tab 01/03/22 [Rx] Follow up Appointment(s)/Referral(s): Jonathan Miramontes MD [STAFF PHYSICIAN] - 02/12/22 10:45 am Patient Instructions/Handouts: Vaginal Delivery (DC) Activity/Diet/Wound Care/Special Instructions: No intercourse or anything per vagina for 6 weeks. Please call if any fever, chills, excessive vaginal bleeding, and/or abdominal pain. Discharge Disposition: HOME SELF-CARE
[2022-01-04] MEDS: SENNOSIDES-DOCUSATE SODIUM 1 EACH TAB PO SCH ×2 (09:18→19:24)
[2022-01-05] MEDS: SENNOSIDES-DOCUSATE SODIUM 1 EACH TAB PO SCH (08:38)
[2022-01-05] MEDS: IBUPROFEN 600 MG TAB PO PRN (08:38)
[2022-01-05 09:37] VITALS: BP 126/75; PULSE 84; RESP 18; TEMP 97.6
== END 2022-01-05 15:20 | disposition home or self-care (01) | DRG 807 ==
LOC: FBPOP 23:48 → 4FBP 01-03 00:36
PROVIDERS: ADMIT Obstetrics & Gynecology; ATTEND Obstetrics & Gynecology
PROC: 10E0XZZ Delivery of Products of Conception, External Approach (ICD-10-PCS; principal; 2022-01-03)
DX: O80 Encounter for full-term uncomplicated delivery (principal); Z37.0 Single live birth; Z3A.38 38 weeks gestation of pregnancy; Z82.0 Family history of epilepsy and other diseases of the nervous system; Z82.49 Family history of ischemic heart disease and other diseases of the circulatory system; Z87.891 Personal history of nicotine dependence
CPT/HCPCS: 59025; 85025; 86850; 86900; 86901; 99213